=== PATIENT | male | born 1965 | race American Indian/Alaskan Native ===

== ENCOUNTER 2019-12-06 10:27 | Emergency (ER) | payer OTHER ==
[2019-12-06 10:34] VITALS: BP 139/75
[2019-12-06] MEDS ORDERED: IBUPROFEN 800 MG TAB PO ONE (13:33)
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
== END 2019-12-06 16:49 | disposition home or self-care (01) ==
LOC: ED 10:27
DX: S46.912A Strain of unspecified muscle, fascia and tendon at shoulder and upper arm level, left arm, initial encounter (principal); S76.012A Strain of muscle, fascia and tendon of left hip, initial encounter; S86.912A Strain of unspecified muscle(s) and tendon(s) at lower leg level, left leg, initial encounter; S96.911A Strain of unspecified muscle and tendon at ankle and foot level, right foot, initial encounter; Z79.899 Other long term (current) drug therapy; X58.XXXA Exposure to other specified factors, initial encounter; Y93.89 Activity, other specified; Y92.89 Other specified places as the place of occurrence of the external cause; Y99.8 Other external cause status

== ENCOUNTER 2022-07-23 13:06 | Emergency (ER) | payer SELFPAY ==
[2022-07-23 13:31] VITALS: BP 121/63
--- NOTE | 2022-07-23 13:36 | Emergency Department Report ---
Chief Complaint: Eye Problems Stated Complaint: EYES CLOUDY HURT - HPI History of Present Illness: Patient present to ER for six months of cloudy vision. Wear glasses. Last eye exam 2 years ago. No medical history. No trauma. - ROS Review of Systems: Blurred vision , no Headache. - Exam Physical Exam: alert and oriented times 3 NAD visual acuity left 20/50, Rt 20/50. with correction breath effortless pulse wnl ambulating without difficulty. MSE screening note: Focused history and physical exam performed. Due to findings the following was ordered: Patient present to ER for six months of cloudy vision. Wear glasses. Last eye exam 2 years ago. No medical history. No trauma. Referral to [facility]. ED Disposition for MSE Clinical Impression: Blurry vision, bilateral Disposition: 01 HOME / SELF CARE / HOMELESS Is pt being admited?: No Does the pt Need Aspirin: No Condition: Stable Instructions: Blurred Vision, Adult Additional Instructions: Please follow up with [facility]. Referrals: [facility] [Provider Group] - 3-5 Days
== END 2022-07-23 15:00 | disposition home or self-care (01) ==
LOC: ED 13:06
DX: H53.8 Other visual disturbances (principal)
CPT/HCPCS: 36415; 82947; 82962; 99283